=== PATIENT | female | born 1990 | race Two or more races ===

== ENCOUNTER 2025-05-07 18:41 | Emergency (ER) | payer OTHER ==
[~2025-05-07] VITALS: Ht 162.6 cm; Wt 127.0 kg
[2025-05-07] MEDS ORDERED: FOLIC ACID20 MG (20:20)
[2025-05-07] MEDS ORDERED: PRENATA CHEWAB1 EACH (20:20)
[2025-05-07] MEDS ORDERED: SYNTHROID50 MCG (20:20)
[2025-05-07 21:00] LABS: BASO % 0.4 % (0.1-1.2); EOS # 0.11 (0.04-0.54); EOS % 0.9 % (0.7-7.0); LYMPH # 3.21 (1.18-3.74); LYMPH % 25.4 % (19.3-53.1); MEAN PLATELET VOLUME 10.10 fl (9.4-12.4); MONO # 0.98 (0.24-0.82); MONO % 7.7 % (4.7-12.5); NEUT # 8.27 (1.56-6.13); NEUT % 65.4 % (34.0-71.1); RED CELL DISTRIBUTION WIDTH 13.1 % (11.6-14.4)
[2025-05-07 21:38] LABS: URINE APPEARANCE Clear; URINE BILIRRUBIN Negative (NEGATIVE); URINE BLOOD Trace; URINE COLOR Dark Yellow; URINE GLUCOSE Negative (NEGATIVE); URINE KETONE Trace (NEGATIVE); URINE LEUKOCYTE Negative; URINE NITRATE Negative; URINE PROTEIN Negative (NEGATIVE); URINE UROBILINOGEN 0.2 E.U./dl
[2025-05-07 21:42] LABS: URINE BACTERIA 721.2 uL (0.0-1933); URINE EPITHELIAL CELLS 9.3 uL (0.0-38.8); URINE RBC 13.3 uL (0.0-20.8); URINE WBC 8.3 uL (0.0-23.2)
[2025-05-07 21:45] LABS: URINE CAST 0.29 uL (0.0-1.40)
== END 2025-05-08 00:09 | disposition home or self-care (01) ==
LOC: ER 18:41
PROVIDERS: General Practice
DX: O20.9 Hemorrhage in early pregnancy, unspecified (principal); Z3A.01 Less than 8 weeks gestation of pregnancy; Z88.6 Allergy status to analgesic agent

== ENCOUNTER 2025-06-18 10:43 | Outpatient (CLI) | payer OTHER ==
[~2025-06-18 10:43] MED LIST: FOLIC ACID20 MG; PRENATA CHEWAB1 EACH; SYNTHROID50 MCG
== END 2025-06-18 10:44 | disposition home or self-care (01) ==
LOC: PRENATAL 10:43
PROVIDERS: ATTEND Obstetrics & Gynecology Maternal & Fetal Medicine
DX: O36.80X0 Pregnancy with inconclusive fetal viability, not applicable or unspecified (principal); Z36.82 Encounter for antenatal screening for nuchal translucency; Z14.8 Genetic carrier of other disease; O99.280 Endocrine, nutritional and metabolic diseases complicating pregnancy, unspecified trimester; Z3A.12 12 weeks gestation of pregnancy

== ENCOUNTER 2025-07-28 13:23 | Inpatient (IN) | payer OTHER ==
[~2025-07-28] VITALS: Ht 162.6 cm; Wt 127.0 kg
--- NOTE | 2025-07-28 13:56 | NUR ---
PACIENTE ALERTA Y ORIENTADA X 3. REFIERE 09/26 DE EMBARAZO QUE TRATA CON EL DR oDnny LUTHER INDICA DESDE EL JUEVES DOLOR ABDOMINAL QUE SE IRRADIA A ESPALDA Y NAUSEAS.
[2025-07-28] MEDS ORDERED: FAMOtidine 10 MG/ML (4ML VIAL) IV ONE (15:30)
[2025-07-28] MEDS ORDERED: ONDANSETRON HCL 2 MG/ML VIAL IV ONE (15:30)
[2025-07-28] MEDS ORDERED: ACETAMINOPHEN 500 MG GEL..CAP PO ONE ×2 (15:30→15:38)
[2025-07-28] MEDS ORDERED: FAMOTIDINE/PF 20 MG/2 ML VIAL ONE (15:38)
[2025-07-28] MEDS ORDERED: ONDANSETRON HCL 2 MG/ML VIAL ONE (15:38)
--- NOTE | 2025-07-28 16:36 | NUR ---
SE ORIENTA A PACIENTE SOBRE TRATAMIENTO MEDICO ORDENADO. PACIENTE REFIERE COMPRENDER TRATAMIENTO ORDENADO. SE BUCK MUESTRA, ADMINISTRA MEDICAMENTOS Y SE ABRE VENOPUNSION SIGUIENDO LAS MEDIDAS ASEPTICAS Y SE UBICA EN ESPERA DE RESULTADOS. SE NOTIFICA A SONOGRAFIA.
[2025-07-28 17:21] LABS: BASO % 0.2 % (0.1-1.2); EOS # 0.02 (0.04-0.54); EOS % 0.2 % (0.7-7.0); LYMPH # 1.18 (1.18-3.74); LYMPH % 10.9 % (19.3-53.1); MEAN PLATELET VOLUME 11.10 fl (9.4-12.4); MONO # 0.53 (0.24-0.82); MONO % 4.9 % (4.7-12.5); NEUT # 9.01 (1.56-6.13); NEUT % 83.5 % (34.0-71.1); RED CELL DISTRIBUTION WIDTH 13.5 % (11.6-14.4)
[2025-07-28 17:45] LABS: ALT/SGPT 187.0 U/L (12-78); AST/SGOT 246.0 U/L (15-37); BILIRUBIN TOTAL 3.37 mg/dL (0.3-1.2); BUN CREA RATIO 8.0 (7.0-25.0); CREATININE SERUM 0.6 mg/dL (0.55-1.02); GFR 114.43; GLOBULINA 4.9 G/DL (2.4-3.5); GLUCOSE FASTING 83.0 mg/dL (65-100); OSMOLALITY SERUM 276.0 MOSM/KG (275-295)
[2025-07-28] MEDS ORDERED: CEFAZOLIN SODIUM 1,000 MG VIAL IV STA (18:25)
[2025-07-28] MEDS ORDERED: CEFAZOLIN SODIUM 1,000 MG VIAL ONE (20:05)
[2025-07-28 21:59] VITALS: BP 117/79
[2025-07-29] MEDS ORDERED: CEFAZOLIN SODIUM 1,000 MG in DEXTROSE 5 % IN WATER 50 ML IV SCH (01:00)
[2025-07-29 01:25] VITALS: BP 98/62
[2025-07-29] MEDS ORDERED: CEFAZOLIN SODIUM 1,000 MG VIAL IV SCH (03:59)
[2025-07-29 08:00] VITALS: BP 104/69
[2025-07-29] MEDS ORDERED: DICYCLOMINE HCL 10 MG CAPSULE PO PRN (14:15)
[2025-07-29 17:29] VITALS: BP 99/64
[2025-07-30 00:51] VITALS: BP 91/56; O2SAT 97
[2025-07-30 08:16] VITALS: BP 96/65
[2025-07-30 16:14] VITALS: BP 98/62
[2025-07-30 23:49] VITALS: BP 96/60
[2025-07-31 08:16] VITALS: BP 93/60
[2025-07-31 16:50] VITALS: BP 96/62
[2025-08-01 00:42] VITALS: BP 92/55
[2025-08-01 08:00] VITALS: BP 96/61
[2025-08-01 16:00] VITALS: BP 103/63
[2025-08-02 01:33] VITALS: BP 97/61
[2025-08-02 08:00] VITALS: BP 96/59
[2025-08-02 16:03] VITALS: BP 90/57
[2025-08-03] VITALS: BP 95/60
[2025-08-03 09:36] VITALS: BP 101/63
== END 2025-08-03 14:41 | disposition home or self-care (01) | DRG 833 ==
LOC: ER 13:23 → OB/GYN 18:26 → O/R 08-02 10:08 → OB/GYN 08-02 10:09
PROVIDERS: General Practice; ADMIT Obstetrics & Gynecology; ATTEND Obstetrics & Gynecology
PROC: BW40ZZZ Ultrasonography of Abdomen (ICD-10-PCS; principal; 2025-07-28)
PROC: 4A1HXCZ Monitoring of Products of Conception, Cardiac Rate, External Approach (ICD-10-PCS; 2025-07-28)
DX: O26.612 Liver and biliary tract disorders in pregnancy, second trimester (principal); K80.20 Calculus of gallbladder without cholecystitis without obstruction; O26.892 Other specified pregnancy related conditions, second trimester; M54.9 Dorsalgia, unspecified; R10.11 Right upper quadrant pain; R11.0 Nausea; Z3A.19 19 weeks gestation of pregnancy

== ENCOUNTER → 2025-08-10 08:13 | Outpatient (CLI) | payer OTHER | END | disposition home or self-care (01) | LOC: PRENATAL 08:13 | PROVIDERS: ATTEND Obstetrics & Gynecology Maternal & Fetal Medicine | DX: O44.02 Complete placenta previa NOS or without hemorrhage, second trimester (principal); O99.282 Endocrine, nutritional and metabolic diseases complicating pregnancy, second trimester; O99.212 Obesity complicating pregnancy, second trimester; Z3A.21 21 weeks gestation of pregnancy ==